=== PATIENT | female | born 1990 | race American Indian/Alaskan Native ===

== ENCOUNTER 2019-05-26 07:30 | Inpatient (IN) | payer OTHER ==
[2019-05-25 15:34] LABS: BASOPHILS ABSOLUTE AUTO 0.03 K/mm3 (0.00-0.23); BASOPHILS PERCENT AUTO 0 % (0-2); EOSINOPHILS ABSOLUTE AUTO 0.12 K/mm3 (0.00-0.68); EOSINOPHILS PERCENT AUTO 2 % (0-6); Hematocrit 36.9 % (33.0-51.0); Hemoglobin 12.9 g/dL (11.5-16.0); IMMATURE GRAN ABSOLUTE AUTO 0.05 K/mm3 (0.00-0.10); IMMATURE GRAN PERCENT AUTO 1 % (0-1); LYMPHOCYTES PERCENT AUTO 22 % (21-46); MONOCYTES ABSOLUTE AUTO 0.56 K/mm3 (0.16-1.47); MONOCYTES PERCENT AUTO 7 % (4-13); Mean Corpuscular HGB 33.7 pg (26.0-34.0); Mean Corpuscular Volume 96 fL (80-100); Mean Platelet Volume 9.9 fL (9.1-12.4); NEUTROPHILS ABSOLUTE AUTO 5.68 K/mm3 (1.96-9.15); NEUTROPHILS PERCENT AUTO 69 % (41-73); Platelet Count 245 K/mm3 (150-400); RDW Coefficient Variation 13.4 % (11.7-14.2); RDW Standard Deviation 47.1 fL (35.1-46.3); Red Blood Cell Count 3.83 M/mm3 (3.80-5.20); White Blood Cell Count 8.24 K/mm3 (4.00-11.30)
[~2019-05-26] VITALS: Ht 160 cm; Wt 83.9 kg
[~2019-05-26 07:30] MED LIST: HYDACE5 PO; HYDHCL25 PO; METPRE4DP PO; NAPR500 PO; PRED10 PO; PRED20 PO; TRAM50 PO; VALA500 PO; Verotin-Gr Cap1 EACH PO
--- NOTE | 2019-05-26 10:38 | NUR ---
05/26/19 1038 Ghislaine Rowe DELIVERY OF VIABLE MALE , APGARS 9/9, WEIGHT 2745 GM. [facility] DELIVERED COMPLETE WEIGHT 570 GMS.
[2019-05-26 10:44] LABS: PCO2 Cord - Arterial 50.5 mmHg (40-50); PO2 Cord - Arterial 14.7 mmHg (16-20)
[2019-05-26 10:45] LABS: PCO2 Cord - Venous 42.5 mmHg (40-50); PO2 Cord - Venous 19.7 mmHg (28-32); pH Umbilical Cord - Venous 7.36 (7.26-7.35)
[2019-05-27 05:52] LABS: BASOPHILS ABSOLUTE AUTO 0.05 K/mm3 (0.00-0.23); BASOPHILS PERCENT AUTO 0 % (0-2); EOSINOPHILS ABSOLUTE AUTO 0.16 K/mm3 (0.00-0.68); EOSINOPHILS PERCENT AUTO 1 % (0-6); Hematocrit 35.2 % (33.0-51.0); Hemoglobin 12.1 g/dL (11.5-16.0); IMMATURE GRAN ABSOLUTE AUTO 0.05 K/mm3 (0.00-0.10); IMMATURE GRAN PERCENT AUTO 0 % (0-1); LYMPHOCYTES ABSOLUTE AUTO 1.95 K/mm3 (0.84-5.20); LYMPHOCYTES PERCENT AUTO 17 % (21-46); MONOCYTES ABSOLUTE AUTO 0.79 K/mm3 (0.16-1.47); MONOCYTES PERCENT AUTO 7 % (4-13); Mean Corpuscular HGB 33.4 pg (26.0-34.0); Mean Corpuscular HGB Conc 34.4 g/dL (31.5-36.5); Mean Corpuscular Volume 97 fL (80-100); Mean Platelet Volume 9.7 fL (9.1-12.4); NEUTROPHILS ABSOLUTE AUTO 8.49 K/mm3 (1.96-9.15); NEUTROPHILS PERCENT AUTO 74 % (41-73); Platelet Count 210 K/mm3 (150-400); RDW Coefficient Variation 13.9 % (11.7-14.2); Red Blood Cell Count 3.62 M/mm3 (3.80-5.20); White Blood Cell Count 11.49 K/mm3 (4.00-11.30)
--- NOTE | 2019-05-27 10:19 | NUR ---
IS IN NURSERY WITH BABY, ABX WILL BE A LITTLE LATE, ALMOST DONE AND BACK TO ROOM THEN WILL START ABX
[2019-05-28] MEDS ORDERED: IBUP800 PO (09:20)
[2019-05-28] MEDS ORDERED: Percocet 5-3251 EACH PO (09:20)
== END 2019-05-28 13:06 | disposition home or self-care (01) | DRG 788 ==
LOC: BC 07:33
PROVIDERS: ADMIT Obstetrics & Gynecology
PROC: 10D00Z1 Extraction of Products of Conception, Low, Open Approach (ICD-10-PCS; principal; 2019-05-26 09:30)
DX: O34.211 Maternal care for low transverse scar from previous cesarean delivery (principal); Z3A.39 39 weeks gestation of pregnancy; Z37.0 Single live birth; O69.1XX0 Labor and delivery complicated by cord around neck, with compression, not applicable or unspecified
CPT/HCPCS: 36415; 82803; 85025; 86850; 86900; 86901; J0690; J1885; J2370; J2405; J2590; J2765; J3010; J7120

== ENCOUNTER → 2020-10-19 | Outpatient (CLI) | payer BC, SELFPAY ==
[~2020-10-19] MED LIST changes: +IBUP800 PO; +Percocet 5-3251 EACH PO
== END | disposition home or self-care (01) ==
LOC: LAB EV 19:02 → LAB SHORT 19:02
DX: N39.0 Urinary tract infection, site not specified (principal)
CPT/HCPCS: 87077; 87086; 87186

== ENCOUNTER 2024-08-20 07:48 | Day surgery (SDC) | payer OTHER ==
[~2024-08-20] VITALS: Ht 160 cm; Wt 60.6 kg
[~2024-08-20 07:48] MED LIST changes: +CeFAZolin Sodium 2,000 MG VIAL ONE; +Lactated Ringer's 1,000 ML IV ONE; +NS 50 ML IV ONE
[2024-08-20] MEDS ORDERED: ELINEST-28 TAB1 EACH (08:35)
[2024-08-20] MEDS ORDERED: propofoL 20 ML IV ONE (08:40)
[2024-08-20] MEDS ORDERED: Lactated Ringer's 1,000 ML IV ONE (08:47)
[2024-08-20] MEDS ORDERED: Midazolam HCl 1MG / ML 2ML Vial ONE (09:27)
[2024-08-20] MEDS ORDERED: FentaNYL Citrate 50 MCG/ML 2 ML Injection ONE (09:27)
[2024-08-20] MEDS ORDERED: Ondansetron HCl 2 MG / ML 2ML Vial ONE (09:36)
[2024-08-20] MEDS ORDERED: Ketorolac Tromethamine 30mg Vial ONE (09:36)
[2024-08-20] MEDS ORDERED: Dexamethasone Sod Phos 10 MG/ML 1ML VIAL ONE (09:36)
[2024-08-20] MEDS ORDERED: Glycopyrrolate 0.2 MG/ML 5ML VIAL ONE (09:54)
[2024-08-20 11:17] VITALS: BP 114/81
== END 2024-08-20 11:11 | disposition home or self-care (01) ==
LOC: ORSCSDS 07:48
PROVIDERS: Obstetrics & Gynecology
PROC: 0UPD8HZ Removal of Contraceptive Device from Uterus and Cervix, Via Natural or Artificial Opening Endoscopic (ICD-10-PCS; principal; 2024-08-20 09:15)
DX: T83.32XD Displacement of intrauterine contraceptive device, subsequent encounter (principal); F32.A Depression, unspecified; F41.9 Anxiety disorder, unspecified; F17.290 Nicotine dependence, other tobacco product, uncomplicated; Z79.899 Other long term (current) drug therapy
CPT/HCPCS: J0690; J1100; J1885; J2250; J2405; J2704; J3010; J7120